=== PATIENT | female | born 1990 ===

== ENCOUNTER 2025-09-15 04:35 | Emergency (ER) | payer OTHER | END 2025-09-15 08:18 | disposition home or self-care (01) | LOC: ER 04:35 | DX: T14.8XXA Other injury of unspecified body region, initial encounter (principal); M54.2 Cervicalgia; M54.6 Pain in thoracic spine; R51.9 Headache, unspecified; V89.2XXA Person injured in unspecified motor-vehicle accident, traffic, initial encounter; Z88.8 Allergy status to other drugs, medicaments and biological substances ==